=== PATIENT | female | born 1995 | race Caucasian/White ===

== ENCOUNTER 2022-10-30 13:01 | Inpatient (IN) | payer BC ==
[~2022-10-30] VITALS: Ht 170.2 cm; Wt 96.8 kg
[2022-10-30] VITALS (25 sets, daily range): BP systolic 114–162; BP diastolic 56–92; PULSE 68–108; TEMP 97.7–98
--- NOTE | 2022-10-30 13:00 | NUR ---
1300 PT IN ER REPORTING CTX Q2 MINUTES. PT TRANSPORTED VIA WHEELCHAIR TO LABOR ROOM. SVE PER CELSO Riley RN, -/-2. PT UNABLE TO CHANGE INTO GOWN. REQUESTING EPIDURAL AFTER SVE. DR. LOCKE CALLED AT THIS TIME. VORB TO ADMIT PT AND GET EPIDURAL.
[~2022-10-30 13:01] MED LIST: PRENATAL TABLET
[2022-10-30 13:45] LABS: BASO # 0.1 K/mm3 (0.0-0.2); BASO % 0.4 % (0.0-2.0); EOS % 0.2 % (0.0-4.0); GRAN # 9.1 K/mm3 (1.4-6.5); HEMATOCRIT 35.3 % (37.0-47.0); HEMOGLOBIN 11.4 g/dl (12.5-16.0); LYMPH # 2.9 K/mm3 (1.2-3.4); MEAN CELL VOLUME 77 fl (80.0-100.0); MEAN CORPUSCULAR HEMOGLOBIN 25 pg (27-31); MEAN CORPUSCULAR HGB CONC 32 g/dl (33.0-37.0); MEAN PLATELET VOLUME 10.3 fl (7.4-10.4); MONO # 0.9 K/mm3 (0.1-0.6); MONO % 6.6 % (1.7-9.3); PLATELET COUNT 318 K/mm3 (130-400); RED BLOOD COUNT 4.56 M/mm3 (4.10-5.30); REDCELL DISTRIBUTION WIDTH-CV 14.6 % (11.5-14.5)
--- NOTE | 2022-10-30 14:20 | NUR ---
1420 [place] IN ROOM FOR EPIDURAL PLACEMENT.PT SITTING UPRIGHT, BOLUS INFUSING PER PROTOCOL. PULSE OX IN PLACE. 1434 TEST DOSE COMPLETED. PT TOLERATED WELL. DIFFICULTY TRACING EFM DUE TO MATERNAL POSITION. VITAL SIGNS STABLE. EFM TRACING CAT 1. 1440 PT RETURNED TO SIDE LYING POSITION, COMFORTABLE. EFM TRACING CAT 1. VS STABLE.
--- NOTE | 2022-10-30 16:25 | NUR ---
1625 DR. LOCKE IN ROOM. UPON EXAM, SROM. PT COMPLETE AT THIS TIME. VORB TO START PUSHING. 1645 DR. LOCKE IN ROOM FOR DECELERATION INTO 70'S. PT TURNED TO SIDE AND SCALP STIMULATION. HR RECOVERED INTO 100'S-110'S. 1720 DR. LOCKE IN ROOM FOR DELIVERY. 1725 OF VIABLE FEMALE INFANT PER DR. LOCKE. BABY PLACED ON MATERNAL ABDOME AND CARE ASSUMED BY DEVIKA HUANG RN. [address] LOCKE. PITOCIN BOLUS INFUSING PER DR. LOCKE. SECOND DEGREE LACERATION AND BILATERAL LABIAL LACERATIONS NOTED. DR. LOCKE BEGINS REPAIR. FUNDUS FIRM, DOWN 1. LOCHIA WNL. PT TOLERATED WELL. 1740 ROOM PUT BACK TOGETHER, PT COMFORTABLE IN BED.
[2022-10-31 01:25] VITALS: BP 124/59; PULSE 65; TEMP 97.7
[2022-10-31 05:00] VITALS: BP 114/68; PULSE 75; TEMP 98.4
[2022-10-31 07:58] VITALS: BP 126/62; PULSE 71; TEMP 97.9
--- NOTE | 2022-10-31 09:37 | NUR ---
Initial visit; Parents thanked for offering Congratulations and Blessings for the of their daughter. Film Composer thanked family for choosing our hospital.
[2022-10-31] MEDS ORDERED: IBU800 M1 PO (10:31)
[2022-10-31] MEDS ORDERED: ROXICODONE 55 MG/TAB PO (10:32)
[2022-10-31 15:21] VITALS: BP 112/60; PULSE 74; TEMP 97.8
[2022-10-31 21:15] VITALS: BP 117/76; PULSE 92; TEMP 98.2
[2022-11-01 07:30] VITALS: BP 120/73; PULSE 84; TEMP 98
== END 2022-11-01 11:15 | disposition home or self-care (01) | DRG 807 ==
LOC: LDRO 13:01 → LDR 13:18 → OB 13:18
PROVIDERS: ADMIT Obstetrics & Gynecology
PROC: 10E0XZZ Delivery of Products of Conception, External Approach (ICD-10-PCS; principal; 2022-10-30)
PROC: 0KQM0ZZ Repair Perineum Muscle, Open Approach (ICD-10-PCS; 2022-10-30)
PROC: 0UQMXZZ Repair Vulva, External Approach (ICD-10-PCS; 2022-10-30)
DX: O70.1 Second degree perineal laceration during delivery (principal); Z37.0 Single live birth; Z3A.39 39 weeks gestation of pregnancy; Z86.16 Personal history of COVID-19; Z23 Encounter for immunization
CPT/HCPCS: J2791; J2795